=== PATIENT | female | born 1995 | race Caucasian/White ===

== ENCOUNTER 2021-05-21 13:13 | Emergency (ER) | payer OTHER ==
[~2021-05-21] VITALS: Ht 147.3 cm; Wt 55.3 kg
[2021-05-21 13:24] VITALS: BP 100/56
[2021-05-21] MEDS ORDERED: SULF1TAB24 PO (13:34)
--- NOTE | 2021-05-21 13:39 | PHYS DOC ---
Past History Additional Past Medical Histor: Non Hodgkins lymphoma (LINDSAY ALDRIDGE APRN) Past Surgical History: , Other Additional Past Surgical Histo: Exp lap to neck, BX to neck (LINDSAY ALDRIDGE APRN) General Adult EDM: Chief Complaint: BREAST PROBLEM HPI: HPI: Patient is a 25-year-old female who presents the emergency department for right breast pain, redness and fevers that started 5 days ago. Patient is currently breast-feeding and has been for 9 months. She reports that she pumps and breast-feeds. She reports that she got a new job and has had to go longer time between pumping. She rates her pain 3 out of 10 and 6 out of 10 with feeding. Patient has an OB but she has not seen an OB in a while. Denies any fevers currently, nausea, vomiting. (LINDSAY ALDRIDGE APRN) Review of Systems: Review of Systems: Constitutional: see HPI GI: see HPI Integument: see HPI Lymphatic: Denies swollen glands (LINDSAY ALDRIDGE APRN) Allergies: Allergies: Allergies Coded Allergies Type Severity Reaction Last Updated Verified No Known Drug Allergies 05/21/21 No (LINDSAY ALDRIDGE APRN) Physical Exam: PE: Constitutional: Well developed, well nourished, no acute distress, non-toxic appearance. [] HENT: Normocephalic, atraumatic, bilateral external ears normal, oropharynx moist, no oral exudates, nose normal. [] Eyes: PERRL, EOMI, conjunctiva normal, no discharge. [] Neck: Normal range of motion, no tenderness, supple, no stridor. [] Cardiovascular:Heart rate regular rhythm, no murmur [] Breast: Erythema noted to right outer quadrant of right breast, no palpable masses, no nipple discharge, no palpable lymphadenopathy Lungs & Thorax: Bilateral breath sounds clear to auscultation [] Abdomen: Bowel sounds normal, soft, no tenderness, no masses, no pulsatile masses. [] Skin: Warm, dry, no erythema, no rash. [] Back: Normal range of motion Extremities: No tenderness, no cyanosis, no clubbing, ROM intact, no edema. [] Neurologic: Alert and oriented X 3, normal motor function, normal sensory function, no focal deficits noted. [] Psychologic: Affect normal, judgement normal, mood normal. [] (LINDSAY ALDRIDGE APRN) Current Patient Data: Vital Signs: Vital Signs Date Time Temp Pulse Resp B/P (MAP) Pulse Ox O2 Delivery O2 Flow Rate FiO2 05/21/21 13:24 98.7 94 18 100/56 (71) 96 (LINDSAY ALDRIDGE APRN) EKG: EKG: [] (LINDSAY ALDRIDGE APRN) Radiology/Procedures: Radiology/Procedures: [] (LINDSAY ALDRIDGE APRN) Heart Score: C/O Chest Pain: N/A Risk Factors: Risk Factors: DM, Current or recent (<one month) smoker, HTN, HLP, family history of CAD, obesity. Risk Scores: Score 0 - 3: 2.5% MACE over next 6 weeks - Discharge Home Score 4 - 6: 20.3% MACE over next 6 weeks - Admit for Clinical Observation Score 7 - 10: 72.7% MACE over next 6 weeks - Early Invasive Strategies (LINDSAY ALRDIDGE APRN) Course & Med Decision Making: Course & Med Decision Making Pertinent Labs and Imaging studies reviewed. (See chart for details) [] Patient presents to the emergency department for right breast pain, redness and a fever that started 5 days ago. Patient states she believes she has mastitis. Physical exam is consistent with mastitis, she does not have any palpable mass consistent with an abscess. Patient's vital signs are stable and she is in no acute distress. Patient educated on symptomatic treatment for mastitis and she will be discharged home with a antibiotic. I discussed with patient all findings and diagnostic testing as well as the need to follow-up with PCP for further evaluation and treatment or return to the ER if any new or worsening symptoms. Strict return precautions were also discussed at length. Patient voiced understanding and agreement with the plan. Patient is hemodynamically stable at the time of disposition. (LINDSAY ALDRIDGE APRN) Dragon Disclaimer: Dragon Disclaimer: This electronic medical record was generated, in whole or in part, using a voice recognition dictation system. (LINDSAY ALDRIDGE APRN) Attending Co-Sign The patient was seen and interviewed as well as examined at the bedside. The chart was reviewed. The case was discussed. Agree with the plan of care. (SANDRA BURCIAGA DO) Departure Departure: Impression: Primary Impression: Mastitis Disposition: HOME / SELF CARE / HOMELESS Condition: GOOD Referrals: JOY KNOX DO, M[facility] (PCP) Patient Instructions: , Mastitis Additional Instructions: You are seen in the emergency department today for mastitis of the right breast. Please take the antibiotic as directed. Please make sure you start and finish it. Continue to breast-feed if tolerable. Wear a supportive bra and massage as well as applying warm compresses. You can take NSAIDs for pain and/or fevers. Follow-up with your primary care provider on Monday regarding your ER visit. Return to the emergency department if you develop high fevers refractory to treatment, worsening of your pain, intractable nausea or vomiting, any severe fatigue. Scripts Cephalexin (KEFLEX) 500 Mg Capsule 1 CAP PO QID for mastitis for 10 Days, #40 CAP 0 Refills Prov: LINDSAY ALDRIDGE APRN 05/21/21 LINDSAY ALDRIDGE APRN May 21, 2021 13:38 SANDRA BURCIAGA DO May 22, 2021 07:46
[2021-05-21] MEDS ORDERED: CEPH500C PO (13:45)
== END 2021-05-21 13:50 | disposition home or self-care (01) ==
LOC: ER 13:13
DX: N61.0 Mastitis without abscess (principal)
CPT/HCPCS: 99283

== ENCOUNTER → 2021-09-21 | Outpatient (CLI) | payer OTHER ==
[~2021-09-21] MED LIST: CEPH500C PO; SULF1TAB24 PO
--- NOTE | 2021-09-21 17:18 | RAD ---
INDICATION: Reason: RECURRENT UTIs,BLOOD IN URINE / Spl. Instructions: / History: COMPARISON: None. TECHNIQUE: Grayscale and color ultrasound images obtained of the bilateral kidneys and bladder. FINDINGS: Right Kidney: 103 mm. Left Kidney: 105 mm. No hydronephrosis bilaterally. Bladder: 256 cc prevoid. Jets not visualized. IMPRESSION: * No hydronephrosis bilaterally. Electronically signed by: West Biswas MD (09/21/2021 5:16 PM) [id number]
== END ==
LOC: US 16:11
PROVIDERS: ATTEND Physician Assistant
DX: N39.0 Urinary tract infection, site not specified (principal)
CPT/HCPCS: 76770